=== PATIENT | male | born 1955 | race Caucasian/White ===

== ENCOUNTER 2017-04-22 20:44 | Inpatient (IN) | payer SELFPAY ==
[~2017-04-22] VITALS: Ht 180.3 cm; Wt 113.6 kg
[~2017-04-22 20:44] MED LIST: ADULT ASPIRIN81 MG; ADULT LOW DOSE81 M1 PO; ASPIRIN325 MG; AVAPRO150 MG; CLINDAMYCIN HC300 M2 PO; COMPAZINE10 MG PO; GARLIC OIL1 CAP PO; MULTI VITAMIN1 EACH PO; NIASPAN500 MG; NORCO 5/325 TAB1 TAB PO; RANITIDINE HCL150 M3 PO; VITAMIN B12100 MCG PO; VITAMIN B6100 MG PO; ZESTRIL20 M3 PO; ZOCOR20 M1 PO
[2017-04-22 21:29] LABS: BASO % 0.6 % (0-2); BASO ABSOLUTE COUNT 0.1 tho/cmm (0.0-0.2); EOSINOPHIL ABSOLUTE COUNT 0.2 tho/cmm (0.0-0.7); HCT-HEMATOCRIT 41.1 % (36.0-53.5); HGB-HEMOGLOBIN 14.1 gm/dl (13.5-17.0); IMMATURE GRANULOCYTES ABSOLUTE 0.03 tho/cmm (0-0.03); IMMATURE GRANULOCYTES PERCENT 0.4 % (0-0.3); LYMPH % 33.9 % (20-45); LYMPH ABSOLUTE COUNT 2.6 tho/cmm (0.8-4.5); MCH (MEAN CORPUSCULAR HGB) 30.1 pg (28.0-32.0); MCHC MEAN CORPUSCULAR HGB CONC 34.3 % (32.0-36.0); MCV (MEAN CELL VOLUME) 87.8 fl (82.0-96.0); MEAN PLATELET VOLUME 10.1 cmc (9.4-12.4); MONO % 8.3 % (0-12); MONOCYTE ABSOLUTE COUNT 0.6 tho/cmm (0.0-1.2); NEUTROPHIL ABSOLUTE COUNT 4.1 tho/cmm (1.6-8.0); NEUTROPHIL-AUTOMATED 4.1 tho/cmm (1.6-8.0); NEUTROPHILS % 53.8 % (40-80); PLATELET COUNT 181 tho/cmm (150-450); RED BLOOD COUNT 4.68 mil/cmm (4.40-5.70); RED CELL DISTRIBUTION WIDTH 13.6 % (12.4-16.4); WHITE BLOOD COUNT 7.7 tho/cmm (4.0-10.0)
[2017-04-22 21:47] LABS: ANION GAP 12 mmol/L (0-20); BLOOD UREA NITROGEN 11 mg/dl (6-24); CALCIUM 8.6 mg/dl (8.5-10.5); CARBON DIOXIDE-VENOUS 25 mmol/L (22-32); CHLORIDE 102 mmol/l (96-110); GLUCOSE 223 mg/dL (70-110); POTASSIUM 4.2 mmol/L (3.7-5.1); SODIUM 135 mmol/L (135-145); eGFR VALUE FOR BLACK 82 mL/Min
[2017-04-22] MEDS ORDERED: SYMBICORT 160-1 PUFF INH (22:11)
[2017-04-22] MEDS ORDERED: PROSCAR5 M1 PO (22:11)
[2017-04-23 02:47] LABS: BASO % 0.5 % (0-2); EOS % 3.4 % (0-7); EOSINOPHIL ABSOLUTE COUNT 0.3 tho/cmm (0.0-0.7); HGB-HEMOGLOBIN 13.8 gm/dl (13.5-17.0); IMMATURE GRANULOCYTES ABSOLUTE 0.03 tho/cmm (0-0.03); IMMATURE GRANULOCYTES PERCENT 0.4 % (0-0.3); LYMPH % 37.5 % (20-45); LYMPH ABSOLUTE COUNT 2.9 tho/cmm (0.8-4.5); MCH (MEAN CORPUSCULAR HGB) 29.7 pg (28.0-32.0); MCHC MEAN CORPUSCULAR HGB CONC 33.7 % (32.0-36.0); MCV (MEAN CELL VOLUME) 88.4 fl (82.0-96.0); MEAN PLATELET VOLUME 9.7 cmc (9.4-12.4); MONO % 9.7 % (0-12); MONOCYTE ABSOLUTE COUNT 0.7 tho/cmm (0.0-1.2); NEUTROPHIL ABSOLUTE COUNT 3.7 tho/cmm (1.6-8.0); NEUTROPHIL-AUTOMATED 3.7 tho/cmm (1.6-8.0); NEUTROPHILS % 48.5 % (40-80); PLATELET COUNT 166 tho/cmm (150-450); RED BLOOD COUNT 4.64 mil/cmm (4.40-5.70); RED CELL DISTRIBUTION WIDTH 13.7 % (12.4-16.4); WHITE BLOOD COUNT 7.6 tho/cmm (4.0-10.0)
[2017-04-23 03:02] LABS: ALB/GLOB RATIO 0.8 (0.8-2.0); ALBUMIN 3.4 g/dl (3.5-5.0); ALKALINE PHOSPHATASE 29 U/L (33-138); ALT/SGPT 48 U/L (12-78); ANION GAP 8 mmol/L (0-20); AST/SGOT 21 U/L (10-40); BILIRUBIN,TOTAL 0.5 mg/dl (0.0-1.5); BLOOD UREA NITROGEN 13 mg/dl (6-24); CALCIUM 8.3 mg/dl (8.5-10.5); CARBON DIOXIDE-VENOUS 27 mmol/L (22-32); CHLORIDE 103 mmol/l (96-110); CREATININE 1.03 mg/dl (0.60-1.30); GLUCOSE 166 mg/dL (70-110); POTASSIUM 4.2 mmol/L (3.7-5.1); SODIUM 134 mmol/L (135-145); eGFR VALUE FOR BLACK 89 mL/Min
[2017-04-23] MEDS ORDERED: PROAIR RESPICL90 MCG INH (13:25)
[2017-04-23] MEDS ORDERED: OMEPRAZOLE20 M3 PO (13:27)
== END 2017-04-23 13:55 | DRG 312 ==
LOC: EDMED 20:44 → 5WE 04-23 00:09 → EMR2 04-23 00:09 → 5WE 04-23 02:15
PROVIDERS: Emergency Medicine; ADMIT Internal Medicine
DX: I95.1 Orthostatic hypotension (principal); I10 Essential (primary) hypertension; Z72.0 Tobacco use; I25.10 Atherosclerotic heart disease of native coronary artery without angina pectoris; E78.5 Hyperlipidemia, unspecified; N40.0 Benign prostatic hyperplasia without lower urinary tract symptoms; J44.9 Chronic obstructive pulmonary disease, unspecified
CPT/HCPCS: C8929; J1170; J1650; J2405; Q9967